=== PATIENT | male | born 1965 | race Hispanic/Latino ===

== ENCOUNTER 2019-05-07 05:41 | Day surgery (SDC) | payer OTHER ==
--- NOTE | 2019-05-01 14:44 | RAD REPORT ---
EXAM DESCRIPTION: RAD - Chest Pa And Lat (2 Views) - 05/01/2019 2:33 pm CLINICAL HISTORY: Preop chest, pending bone spur removal and tendon repair COMPARISON: None. TECHNIQUE: PA and lateral views of the chest were obtained. FINDINGS: The lungs are clear. Heart size is normal and central vasculature is within normal limit s. No pleural effusion or pneumothorax seen. No acute bony finding noted. No aortic abnormality. IMPRESSION: No acute cardiopulmonary process.
[2019-05-01 15:14] LABS: Urine Appearance CLEAR; Urine Bilirubin NEGATIVE (NEG); Urine Blood NEGATIVE (NEG); Urine Color YELLOW; Urine Glucose NEGATIVE (NEG); Urine Protein NEGATIVE (NEG); Urine Specific Gravity <=1.005 (1.005-1.030); Urine Urobilinogen 0.2 mg/dL (0.2-1.0)
[2019-05-01 15:19] LABS: Absolute Lymphocytes (CBC) 2.1 K/uL (0.7-4.9); Basophils % 1.4 % (0-1.3); Hematocrit 43.9 % (39.6-49.0); Lymphocytes % 28.2 % (15.3-44.8); MPV 9.9 fL (7.6-11.3); Protime INR 0.91; RBC Red Blood Cell Count 4.92 M/uL (4.33-5.43)
[2019-05-01 15:20] LABS: BUN Blood Urea Nitrogen 12 mg/dL (7-18); Bicarbonate 29 mmol/L (21-32); Glucose Level 108 mg/dL (74-106); Potassium 3.7 mmol/L (3.5-5.1); Sodium Level 141 mmol/L (136-145)
[2019-05-01 16:06] LABS: ALT/SGPT 28 U/L (12-78); AST/SGOT 13 U/L (15-37); Alkaline Phosphatase 74 U/L (45-117); Bilirubin Direct < 0.1 mg/dL (0-0.2); Bilirubin Total 0.3 mg/dL (0.2-1.0); Protein, Total 7.2 g/dL (6.4-8.2)
[2019-05-01 16:18] LABS: Urine Microscopic Reflex NO UMIC
--- NOTE | 2019-05-02 07:15 | EKG ---
Test Date: 2019-05-01 Test Time: 14:07:34 Jet Inspector: VICKIE MEASUREMENT RESULTS: Intervals: Rate: 63 AL: 152 QRSD: 98 QT: 404 QTc: 413 [place]: P: 41 AL: 152 QRS: 11 T: 26 INTERPRETIVE STATEMENTS: Normal sinus rhythm Normal ECG No previous ECG available for comparison Electronically Signed On 05-02-19 07:13:36 CDT by Thien Brandon
--- OUTSIDE RECORDS SUMMARY | 2019-05-07 05:45 | XMS REPORT | Clinical Summary ---
:1965 Author Organization [facility] Address [address] [place] [address] Care Team Providers Name Role Phone Jazmine Farris MD Primary Care Provider Allergies Active Allergy Reactions Severity Noted Date Comments Codeine 11/12/2018 Medications Medication Sig Dispensed Refills Start Date End Date Status atorvastatin Take 20 mg 5 02/09/2019 Active (LIPITOR) 20 MG by mouth tablet daily. meloxicam (MOBIC) Take 1 30 tablet 3 11/12/2018 15 mg tablet tablet (15 9 mg total) by mouth daily for 30 days. Take with food naproxen Take 1 60 tablet 1 03/17/2019 Discontinued (NAPROSYN) 375 MG tablet (375 9 (Error) tabletIndications: mg total) by Right shoulder mouth 2 tendonitis (two) times a day with meals for 30 days. naproxen Take 1 60 tablet 1 03/17/2019 (NAPROSYN) 500 MG tablet (500 9 tabletIndications: mg total) by Right shoulder mouth 2 tendonitis (two) times a day with meals for 30 days. Active Problems Problem Noted Date Arthritis of left shoulder region 11/12/2018 Right shoulder tendonitis 11/12/2018 Left shoulder tendonitis 11/12/2018 Encounters Date Type Specialty Care Team Description 03/14/2019 Telephone Orthopedic Surgery Marlene Mercado RN Right shoulder tendonitis (Primary Dx) 02/25/2019 Office Visit Orthopedic Surgery Henry Contreras, Right shoulder MD tendonitis (Primary Dx) 11/12/2018 Office Visit Orthopedic Surgery Brendan Elizondo MD Acute pain of both shoulders (Primary Dx); Arthritis of left shoulder region; Right shoulder tendonitis; Left shoulder tendonitis after 05/06/2018 Family History Medical History Relation Name Comments Cancer Father No Known Problems Mother Relation Name Status Comments Father Mother Social History Tobacco Use Types Packs/Day Years Used Date Never Assessed Sex Assigned at Date Recorded Not on file Job Start Date Occupation Industry Not on file Not on file Not on file Travel History Travel Start Travel End No recent travel history available. Last Filed Vital Signs Vital Sign Reading Time Taken Comments Blood Pressure 140/78 02/25/2019 3:46 PM CDT Pulse - - Temperature - - Respiratory Rate - - Oxygen Saturation - - Inhaled Oxygen Concentration - - Weight 86.2 kg (190 lb) 02/25/2019 3:46 PM CDT Height 170.2 cm (5' 7") 02/25/2019 3:46 PM CDT Body Mass Index 29.76 02/25/2019 3:46 PM CDT Plan of Treatment Health Maintenance Due Date Last Done Comments COLONOSCOPY SCREENING 2015 SHINGLES VACCINES (#1) 2015 INFLUENZA VACCINE 04/10/2019 Procedures Procedure Name Priority Date/Time Associated Comments Diagnosis [place] ARTHROCENTESIS Routine 02/25/2019 3:30 Right shoulder Results for this ASPIR&/INJ MAJOR PM CDT tendonitis procedure are in JT/BURSA W/O US the results section. XR SHOULDERS BILATERAL Routine 11/12/2018 9:22 Acute pain of both Results for this AM MONOLOGIST shoulders procedure are in the results section. TN ARTHROCENTESIS Routine 11/12/2018 8:40 Acute pain of both Results for this ASPIR&/INJ MAJOR AM MONOLOGIST shoulders procedure are in JT/BURSA W/O US Arthritis of left the results shoulder region section. after 05/06/2018 Results Large Joint Arthrocentesis: shoulder, R subacromial bursa (02/25/2019 3:30 PM CDT) Narrative Performed At Henry Contreras MD 02/25/20195:02 PM Large Joint Arthrocentesis: shoulder, R subacromial bursa Consent given by: patient Supporting Documentation Indications: pain Procedure Details Ultrasound guided: no Platelet Rich Plasma Used: no PRP Used Location: shoulder - R subacromial bursa Right side: Needle size: 22 G Approach: posterior Right shoulder medications administered: 2 mL bupivacaine 0.25 % (2.5 mg/mL); 1 mL lidocaine 10 mg/mL (1 %); 6 mg betamethasone acetate & sodium phosphate 6 mg/mL Patient tolerance: patient tolerated the procedure well with no immediate complications XR Shoulders Bilateral (11/12/2018 9:22 AM MONOLOGIST) Specimen Narrative Performed At PA, lateral, oblique x-rays are done of the left shoulder.These x-rays MARIAN demonstrate moderate glenohumeral joint arthritis with an inferior bone spur.There is moderate AC joint arthritis.There is a type II acromion. PA, lateral, oblique x-rays are done of the right shoulder.These demonstrate moderate osteoarthritis of the right acromioclavicular joint. There is also some mild glenohumeral joint osteoarthritis. Performing Organization Address [facility] Phone Number MARIAN [address] [place] [address] Right shoulder cortisone injection: shoulder, Bilateral subacromial bursa (11/12 8:40 AM MONOLOGIST) Narrative Performed At Brendan Elizondo MD 11/12/2018 10:10 AM Right shoulder cortisone injection: shoulder, Bilateral subacromial bursa Consent given by: patient Site marked: site marked Timeout: Immediately prior to procedure a time out was called to verify the correct patient, procedure, equipment, decision support analyst and site/side marked as required Supporting Documentation Indications: pain Procedure Details Preparation: Patient was prepped and draped in the usual sterile fashion Ultrasound guided: no Platelet Rich Plasma Used: no PRP Used Location: shoulder - Bilateral subacromial bursa Right side: Needle size: 25 G (25 gauge) Approach: anterolateral Right shoulder medications administered: 3 mg betamethasone acetate & sodium phosphate 6 mg/mL; 0.5 mL lidocaine 10 mg/mL (1 %) Aspirate amount: 0 mL Patient tolerance: patient tolerated the procedure well with no immediate complications Left side: Needle size: 25 G Approach: anterolateral Left shoulder medications administered: 3 mg betamethasone acetate & sodium phosphate 6 mg/mL; 0.5 mL lidocaine 10 mg/mL (1 %) Patient tolerance: patient tolerated the procedure well with no immediate complications after 05/06/2018 Advance Directives For more information, please contact: [phone] Type Date Recorded 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
--- OUTSIDE RECORDS SUMMARY | 2019-05-07 05:45 | XMS REPORT ---
:1965 Author Organization [employer] Care Team Providers Name Role Phone Calhoun Maxi Provider Role Unavailable Allergies, Adverse Reactions, Alerts Substance Reaction Event Type codeine Info Not Available Drug Allergy Problems Problem Type Condition Code Onset Dates Condition Status Assessment Superior glenoid labrum lesion of S43.431A Active right shoulder, initial encounter Problem Primary osteoarthritis of right M19.011 Active shoulder Assessment Primary osteoarthritis of right M19.011 Active shoulder Assessment Pain, joint, shoulder, right M25.511 Active Assessment Right bicipital tenosynovitis M75.21 Active Assessment Impingement syndrome of right M75.41 Active shoulder Medications Medication Code System Code Instructions Start Date End Date Status Dosage Naproxen NDC 0 Active not defined atorvastatin NDC 55335177493 20mg Active 1 tablet by mouth at bedtime Results No Known Results Summary Purpose [employer] Submission
[2019-05-07] MEDS ORDERED: CEFAZOLIN/SWI 2gm 2 GM/20 ML SYR ONE (05:54)
[2019-05-07] MEDS ORDERED: Ringers Lactate 1,000 ML IV ONE ×2 (05:54→07:18)
[2019-05-07] MEDS ORDERED: PROPOFOL 200 MG/20 ML VIAL IV ONE (06:30)
[2019-05-07] MEDS ORDERED: FENTANYL CITR 100 MCG/2 ML ONE (06:30)
[2019-05-07] MEDS ORDERED: ROCURONIUM 50 MG/5 ML VIAL IV ONE (06:31)
[2019-05-07] MEDS ORDERED: MIDAZOLAM HCL 2 MG/2 ML INJ ONE (06:31)
[2019-05-07] MEDS ORDERED: LIDOCAINE 2% MPF 5 ML VIAL ONE ×2 (06:31→06:45)
[2019-05-07] MEDS ORDERED: ROPLVACAINE HCL 20 ML ONE (06:35)
[2019-05-07] MEDS ORDERED: dexAMETHasone 10 MG/ML VIAL ONE ×2 (06:35→09:28)
[2019-05-07] MEDS ORDERED: EPINEPHRINE/PF 1 MG/ML AMP ONE (06:54)
[2019-05-07] MEDS ORDERED: BUPIVACAINE 0.5% PF 10 ML VIAL ONE (09:22)
[2019-05-07] MEDS ORDERED: NS 0.9% VIAL 10 ML ONE (09:24)
[2019-05-07] MEDS ORDERED: ONDANSETRON 4 MG/2 ML VIAL ONE (09:33)
[2019-05-07] MEDS ORDERED: GLYCOPYRROLATE 0.2 MG/ML SYR ONE (09:53)
[2019-05-07] MEDS ORDERED: NEOSTIGMINE 1 MG/ML -10 ML VIAL ONE (09:53)
--- NOTE | 2019-05-07 10:29 | P.BOP ---
Preoperative diagnosis: right shoulder arthritis, SLAP tear, impingement syndrome Postoperative diagnosis: same Primary procedure: right shoulder arthroscopic SLAP debridement and lysis of adhesions Secondary procedure: right shoulder arthroscopic subacromial decompress Other procedure(s): right shoulder open subpectoral biceps tenodesis Estimated blood loss: 10 cc Specimen: none Findings: see dictation Anesthesia: General Complications: None Implants: Arthrex 7 mm biotenodesis screw Fluids & blood products: per anesthesia record Transferred to: Recovery Room Condition: Good
--- NOTE | 2019-05-07 11:32 | RAD REPORT ---
EXAM DESCRIPTION: RAD - Shoulder 1 View - 05/07/2019 11:24 am CLINICAL HISTORY: Right shoulder surgery FINDINGS: Frontal view of the right shoulder was obtained. No fracture or dislocation is seen. Moder ate osteoarthritis involves the AC joint.
[2019-05-07] MEDS ORDERED: HYDROCODONE/APAP 7.5/325 MG TAB ONE (12:51)
--- NOTE | 2019-05-09 08:13 | OP ---
Date of Procedure: 05/07/2019 Surgeon: Maxi Calhoun MD Preoperative Diagnoses: 1.Right shoulder . 2.Right shoulder SLAP tear. 3.Right shoulder impingement syndrome. Postoperative Diagnoses: 1.Right shoulder . 2.Right shoulder SLAP tear. 3.Right shoulder impingement syndrome. Procedure Performed: 1.Right shoulder arthroscopic SLAP tear debridement with lysis of adhesions. 2.Right shoulder arthroscopic subacromial decompression. 3.Right shoulder open subpectoral biceps tenodesis. Anesthesia: General endotracheal. Fluids: Per Anesthesia record. Estimated Blood Loss: . Complications: None. Implants: mm Bio-tenodesis screw. Indications For Procedure: Andrew is a 54-year-old male, who presented to my clinic with right should er pain with loss of motion. Physical exam findings and MRI findings were consistent with a SLAP tea r and . I discussed with the patient risks and benefits associated with operati ve and nonoperative treatment. Discussed possibility elected to proceed with surgery. Description Of Procedure: After informed consent was obtained, the patient has been identified in [facility] preoperative holding area. The right lower extremity was marked. Patient was then brought back to the PACU and underwent an interscalene block in the right upper extremity performed by Anesthesia. He was then brought back to the operating room, transferred to the operating table in a supine fashio n and placed under general endotracheal anesthesia. He was then placed in the beach chair position w ith his extremities well padded. The right upper extremity was then prepped and draped in usual ster ile fashion. A time-out was initiated. Correct patient and procedure were confirmed and identified. The patient did receive his preoperative prophylactic antibiotics. Via the posterior portal, spina l needle was introduced in the glenohumeral joint and the joint was injected with 30 mL of normal mariana ine the capsule. A stab incision was made posteriorly into the posterior portal and arthr oscope was brought into posterior portal position diagnostic arthroscopy was performed. A standard anterior portal was created cannula was placed. The patient was noted to have a SLAP tear SLAP tear was debrided using an arthroscopic shaver. Biceps tenotomy was perfo rmed using a radiofrequency . Subscapularis was identified and no significant tear noted. There was chondromalacia changes on the humeral head and grade 3 changes on th e glenoid surface posterior labrum and inferior labrum and these were debrided using the a rthroscopic shaver. and using a radiofrequency ablator, capsular release the s ubscapularis muscle fibers were identified after the release was performed. rotator cuff was then evaluated. There was no significant tear noted in the the subacromial space, lat eral portal was created and the subacromial bursectomy was performed using the arthroscopic shaver __ no significant rotator cuff tear noted and there was some there was no significan t tear noted. The arthroscope was then brought into the radiofrequency ablator was then u sed to debride undersurface of the acromion and an acromioplasty was performed using an ar throscopic bur as well as the subacromial decompression . Arthroscopic instruments were th en removed. Attention was then taken to performing biceps tenodesis. Approximately, a 6 cm incision was made just medial to the pec insertion fascia, which was split and divided proximally and distally tendon was then retracted superiorly with a Hohmann retractor iden tified and was brought out through the incision and debrided marked. The tendon was then whipstitched using remaining tendon was cut distally from the jamil was identifi ed. A guide pin was placed bicortically a 7.5 mm reamer was then placed over the guide pi n 7 mm Bio-Tenodesis screw was then along the tendon. The wounds were then irr igated thoroughly with normal saline. Subcutaneous tissue was approximated using a 2-0 Vicryl. Skin was approximated using a 3-0 Monocryl. Sterile dressings were applied. Patient was placed __ transferred back in stable condition. Postoperative Plan: CV/MODL Voice ID: [id number] Report ID: [id number]
== END 2019-05-07 13:35 | disposition home or self-care (01) ==
LOC: OR 05:41
PROVIDERS: ATTEND Orthopaedic Surgery Sports Medicine
PROC: 0RNJ4ZZ Release Right Shoulder Joint, Percutaneous Endoscopic Approach (ICD-10-PCS; 2019-05-07)
PROC: 0LS10ZZ Reposition Right Shoulder Tendon, Open Approach (ICD-10-PCS; 2019-05-07)
PROC: 0RHJ04Z Insertion of Internal Fixation Device into Right Shoulder Joint, Open Approach (ICD-10-PCS; 2019-05-07)
PROC: 0RNJ4ZZ Release Right Shoulder Joint, Percutaneous Endoscopic Approach (ICD-10-PCS; principal; 2019-05-07 07:30)
DX: S43.431A Superior glenoid labrum lesion of right shoulder, initial encounter (principal); M75.21 Bicipital tendinitis, right shoulder; M75.41 Impingement syndrome of right shoulder; M19.011 Primary osteoarthritis, right shoulder; E78.5 Hyperlipidemia, unspecified; Z88.6 Allergy status to analgesic agent; Z83.3 Family history of diabetes mellitus; Z82.49 Family history of ischemic heart disease and other diseases of the circulatory system; Z80.42 Family history of malignant neoplasm of prostate
CPT/HCPCS: 93005; 85025; 80048; 36415; 85610; 80076; 85730; 81003; 71046; 73020; 29822; 29825; 23430; J2704; J2710; J0171; J2250; J3010; J1100 ×2; J2795; J0690; J2405